=== PATIENT | male | born 1975 | race Caucasian/White ===

== ENCOUNTER 2017-06-25 21:49 | Emergency (ER) | payer SELFPAY ==
[2017-06-25 21:49] VITALS: BMI 30.9
[2017-06-25 22:08] VITALS: BP 151/80; PULSE 64; RESP 16; TEMP 98; O2SAT 100
--- NOTE | 2017-06-25 22:34 | ED PDOC ---
HPI: CCC, URI, Sore Throat Time Seen by Provider: 06/25/17 22:09 Chief Complaint (Nursing): ENT Problem Chief Complaint (Provider): Nose bleed History Per: Patient Additional Complaint(s): 41 yo male, no PMH, presents to ED for evaluation of nosebleed from left nare since Friday. Patient has had bleed evaluated and treated at multiple emergency rooms. Pt was seen at [facility] [place] [place] 2x, [facility] 2x where he was cauterized and then [place] today where he had a rhino-rocket placed. Packing is coming out. Pt reports bleeding always seems to stop, and then start again. pt seeing ENT on Friday. Past Medical History Reviewed: Nursing Documentation, Vital Signs Vital Signs: Last Vital Signs Temp 98.0 F 06/25/17 22:05 Pulse 64 06/25/17 22:05 Resp 16 06/25/17 22:05 BP 151/80 H 06/25/17 22:05 Pulse Ox 100 06/25/17 22:37 - Medical History PMH: No Chronic Diseases Denies: Chronic Kidney Disease - Surgical History Surgical History: No Surg Hx - Family History Family History: States: Unknown Family Hx - Living Arrangements Living Arrangements: With Family - Social History Current smoker - smoking cessation education provided: No Alcohol: Social Drugs: Denies - Immunization History Hx Tetanus Toxoid Vaccination: No Hx Influenza Vaccination: No Hx Pneumococcal Vaccination: No - Home Medications Home Medications: Ambulatory Orders Medication Instructions Recorded Amoxicillin 875 mg PO BID #14 tab 06/24/17 Amoxicillin/Clavulanate [Augmentin 1 tab PO BID #10 tab 06/25/17 875 MG-125 MG] Sodium Chloride Nasal [place] [[place] 1 ml NS BID #1 bottle 06/25/17 Nasal [place]] - Allergies Allergies/Adverse Reactions: Allergies Allergy/AdvReac Type Severity Reaction Status Date / Time No Known Allergies Allergy Verified 06/24/17 19:57 Review of Systems ROS Statement: Except As Marked, All Systems Reviewed And Found Negative ENT: Positive for: Other (nasal bleeding) Physical Exam - Reviewed Nursing Documentation Reviewed: Yes Vital Signs Reviewed: Yes - Physical Exam Appears: Positive for: Well, Non-toxic, No Acute Distress Head Exam: Positive for: ATRAUMATIC, NORMAL INSPECTION, NORMOCEPHALIC Skin: Positive for: Normal Color, Warm, DRY Eye Exam: Positive for: EOMI, Normal appearance, PERRL ENT: Positive for: Other ((+) rhinorocket in place to left nare) Neck: Positive for: Normal, Painless ROM Cardiovascular/Chest: Positive for: Regular Rate, Rhythm Respiratory: Positive for: CNT, Normal Breath Sounds Gastrointestinal/Abdominal: Positive for: Normal Exam, Bowel Sounds, Soft Back: Positive for: Normal Inspection Extremity: Positive for: Normal ROM Neurologic/Psych: Positive for: Alert, Oriented - ECG O2 Sat by Pulse Oximetry: 100 Medical Decision Making Medical Decision Making: Rhinorocket removed at Pts request No bleeding noted. Silver nitrate applied by blog writer Pt educated on proper technique to stop bleeds. [place] Nasal spray prescribed. pt advised to sleep somewhat upright Importance of follow up with ENT was stressed Pt advised to return to ED if at anytime condition worsens. Disposition - Clinical Impression Clinical Impression: Epistaxis - Patient ED Disposition Is Patient to be Admitted: No - Disposition Referrals: Simone Pimentel MD [Staff Provider] - Disposition: Routine/Home Disposition Time: 23:35 Condition: STABLE Prescriptions: Sodium Chloride Nasal [place] [[place] Nasal [place]] 1 ml NS BID #1 bottle Instructions: Nosebleed (ED) Forms: [facility] (Mongolian) - POA Present On Arrival: None
[2017-06-25] MEDS ORDERED: Silver Nitrate Topical - Stick TOP ONE (22:57)
[2017-06-25] MEDS ORDERED: Silver Nitrate Topical - Stick ONE (23:17)
== END 2017-06-25 23:57 | disposition home or self-care (01) ==
LOC: H.ER 21:49
DX: R04.0 Epistaxis (principal)

== ENCOUNTER 2018-10-10 05:37 | Emergency (ER) | payer OTHER ==
[2018-10-10 05:37] VITALS: BMI 30.9
--- NOTE | 2018-10-10 06:12 | ED PDOC ---
HPI: Chest Pain <Nataliya Orta - Last Filed: 10/10/18 08:22> Chief Complaint (Provider): Chest Pain History Per: Patient History/Exam Limitations: no limitations Onset/Duration Of Symptoms: Days (x6) Current Symptoms Are (Timing): Still Present Additional Complaint(s): 43 year old [place] male with left-sided chest pain with occasional shortness of breath for 6 days. He denies any nausea, vomiting, or diaphoresis. PCP: none provided <Tony Mancuso - Last Filed: 10/10/18 20:03> Time Seen by Provider: 10/10/18 05:41 Chief Complaint (Nursing): Chest Pain Past Medical History Vital Signs: Last Vital Signs Temp 97.8 F 10/10/18 05:52 Pulse 58 L 10/10/18 06:25 Resp 16 10/10/18 05:52 BP 129/75 10/10/18 05:52 Pulse Ox 99 10/10/18 06:19 <Nataliya Orta A - Last Filed: 10/10/18 08:22> Reviewed: Historical Data, Nursing Documentation, Vital Signs Vital Signs: Last Vital Signs Temp 97.8 F 10/10/18 05:52 Pulse 56 L 10/10/18 05:52 Resp 16 10/10/18 05:52 BP 129/75 10/10/18 05:52 Pulse Ox 99 10/10/18 05:52 - Medical History PMH: No Chronic Diseases Denies: Chronic Kidney Disease - Surgical History Other surgeries: left abdominal cyst removed - Family History Family History: States: Unknown Family Hx - Immunization History Hx Tetanus Toxoid Vaccination: No Hx Influenza Vaccination: No Hx Pneumococcal Vaccination: No <Tony Mancuso - Last Filed: 10/10/18 20:03> - Home Medications Home Medications: Ambulatory Orders Medication Instructions Recorded Cyclobenzaprine [Cyclobenzaprine 10 mg PO TID PRN #21 tab 02/13/18 HCl] Lidocaine 5% [Lidoderm] 1 patch TOP DAILY PRN #14 patch 02/13/18 RX: Naproxen 500 mg PO BID PRN #24 tablet 02/13/18 - Allergies Allergies/Adverse Reactions: Allergies Allergy/AdvReac Type Severity Reaction Status Date / Time No Known Allergies Allergy Verified 02/13/18 10:50 Review of Systems ROS Statement: Except As Marked, All Systems Reviewed And Found Negative Constitutional: Negative for: Sweats Cardiovascular: Positive for: Chest Pain (left-sided) Respiratory: Positive for: Shortness of Breath Gastrointestinal: Negative for: Nausea, Vomiting <BartolomeTony Pedro - Last Filed: 10/10/18 20:03> Physical Exam - Reviewed Nursing Documentation Reviewed: Yes Vital Signs Reviewed: Yes - Physical Exam Appears: Positive for: Well, Non-toxic, No Acute Distress Head Exam: Positive for: ATRAUMATIC, NORMAL INSPECTION, NORMOCEPHALIC Skin: Positive for: Normal Color Eye Exam: Positive for: Normal appearance, EOMI, PERRL ENT: Positive for: Normal ENT Inspection Neck: Positive for: Normal Cardiovascular/Chest: Positive for: Regular Rate, Rhythm, Chest Non Tender. Negative for: Bradycardia, Tachycardia Respiratory: Positive for: Normal Breath Sounds. Negative for: Respiratory Distress Gastrointestinal/Abdominal: Positive for: Normal Exam, Soft. Negative for: Tenderness Extremity: Positive for: Normal ROM (upper/lower). Negative for: Pedal Edema, Calf Tenderness Neurologic/Psych: Positive for: Alert, Oriented. Negative for: Motor/Sensory Deficits <Tony Mancuso Vasquez - Last Filed: 10/10/18 20:03> - Laboratory Results Result Diagrams: 10/10/18 06:25 10/10/18 06:25 <Nataliya Orta - Last Filed: 10/10/18 08:22> - Laboratory Results Result Diagrams: 10/10/18 06:25 10/10/18 06:25 - ECG O2 Sat by Pulse Oximetry: 99 (RA) Pulse Ox Interpretation: Normal <Tony Mancuso Vasquez - Last Filed: 10/10/18 20:03> Medical Decision Making Medical Decision Making: Initial Impression: 43 year old [place]ae-[place] male with chest pain Initial Plan: * EKG * Labs * Aspirin chewable 324mg PO Time: 0700 --Patient is signed out to Dr. Orta pending lab results and re-evaluation. Scribe Attestation: Documented by Inessa Rehman, acting as a scribe for Tony Mancuso MD. Provider Scribe Attestation: All medical record entries made by the Scribe were at my direction and personally dictated by me. I have reviewed the chart and agree that the record accurately reflects my personal performance of the history, physical exam, medical decision making, and the department course for this patient. I have also personally directed, reviewed, and agree with the discharge instructions and disposition. <Tony Mancuso - Last Filed: 10/10/18 20:03> Disposition <Nataliya Orta - Last Filed: 10/10/18 08:22> - Disposition Disposition: Transfer of Care Disposition Time: 07:00 <Tony Mancuso - Last Filed: 10/10/18 20:03> - Clinical Impression Clinical Impression: Chest pain, Interstitial lung disease - Disposition Condition: GOOD Additional Instructions: BRYCE GILLILAND, thank you for letting us take care of you today. Your provider was Nataliya Orta MD and you were treated for CHEST PAIN. The emergency medical care you received today was directed at your acute symptoms. If you were prescribed any medication, please fill it and take as directed. It may take several days for your symptoms to resolve. Return to the Emergency Department if your symptoms worsen, do not improve, or if you have any other problems. Please contact your doctor or call one of the physicians/clinics you have been referred to that are listed on the Patient Visit Information form that is included in your discharge packet. Bring any paperwork you were given at discharge with you along with any medications you are taking to your follow up visit. Our treatment cannot replace ongoing medical care by a primary care provider outside of the emergency department. Thank you for allowing the [facility] team to be part of your care today. If you had an X-Ray or CT scan: A Radiologist will review the ED reading if any change in treatment is needed we will contact you. If you had a blood, urine, or wound culture: It will take several days for the results, if any change in treatment is needed we will contact you. If you had an STI test: It will take 48 hours for the results. Please call after 1 week if you have not heard back. Instructions: Chest Pain, Interstitial Lung Disease Forms: [facility] (Lao)
[2018-10-10 06:55] LABS: BASO % 0.5 % (0.0-2.0); EOS # 0.1 K/uL (0.0-0.7); EOS % 2.4 % (0.0-4.0); HEMOGLOBIN 14.3 g/dL (12.0-18.0); LYMPH # 1.8 K/uL (1.0-4.3); MEAN CELL VOLUME 86.8 fl (80.0-94.0); MEAN CORPUSCULAR HEMOGLOBIN 28.8 pg (27.0-31.0); MEAN CORPUSCULAR HGB CONC 33.2 g/dL (33.0-37.0); MEAN PLATELET VOLUME 9.4 fl (7.2-11.7); MONO # 0.4 K/uL (0.0-0.8); MONO % 9.4 % (0.0-10.0); NEUT # 2.2 K/uL (1.8-7.0); NEUT % 48.7 % (50.0-75.0); NRBC % 0.1 % (0.0-0.0); RBC 4.96 Mil/uL (4.40-5.90); WHITE BLOOD COUNT 4.6 K/uL (4.8-10.8)
[2018-10-10 07:00] LABS: ALB/GLOB RATIO 1.5 (1.0-2.1); ALBUMIN 4.1 g/dL (3.5-5.0); ALT/SGPT 46 U/L (21-72); AST/SGOT 22 U/L (17-59); BLOOD UREA NITROGEN 19 mg/dl (9-20); CALCIUM 9.1 mg/dL (8.4-10.2); GFR NON-AFRICAN AMERICAN > 60
[2018-10-10] MEDS ORDERED: Morphine 4 MG/ML VIAL IVP ONE (08:24)
[2018-10-10 08:26] VITALS: RESP 18; TEMP 97.9
[2018-10-10] MEDS ORDERED: Morphine 4 MG/ML VIAL ONE (08:32)
[2018-10-10] MEDS ORDERED: Iodixanol 320 MG/ML 100 ML BOTTLE IV ONE (09:02)
--- NOTE | 2018-10-10 09:39 | CT ---
Date of service: 10/10/2018 PROCEDURE: CT Chest with contrast (Pulmonary Angiogram) HISTORY: chest pain COMPARISON: None available. TECHNIQUE: Axial computed tomography images were obtained of the chest in the pulmonary arterial phase of enhancement. Coronal and sagittal reformatted images were created and reviewed. Intravenous contrast dose: Visipaque 320, 99 cc Radiation dose: Total exam DLP = 393.0 mGy-cm. This CT exam was performed using one or more of the following dose reduction techniques: Automated exposure control, adjustment of the mA and/or kV according to patient size, and/or use of iterative reconstruction technique. FINDINGS: PULMONARY ARTERIES: Unremarkable. No pulmonary embolism. AORTA: No acute findings. No thoracic aortic aneurysm. No aortic atherosclerotic calcification or mural plaque present. LUNGS: No alveolitis identified bilaterally or discrete pulmonary mass including central airways. Ground-glass opacity scattered throughout both lung kumar bilaterally could reflect an element of reversible interstitial pulmonary disease. Further clinical correlation is recommended. PLEURAL SPACES: Unremarkable. No effusion or pneumothorax. HEART: Unremarkable. No cardiomegaly. No significant pericardial effusion. LYMPH NODES: No lymphadenopathy. BONES, CHEST WALL: Unremarkable. No fracture or destructive lesion OTHER FINDINGS: Elevated right hemidiaphragm, etiology indeterminate. IMPRESSION: 1. No CT evidence of pulmonary embolus, alveolitis, pleural or pericardial effusion. No significant lymphadenopathy. 2. Limited nonspecific ground-glass opacity scattered bilaterally as discussed above. Consider potential limited interstitial pulmonary disease. 3. Mildly elevated right hemidiaphragm.
--- NOTE | 2018-10-10 09:40 | ED PDOC ---
- Laboratory Results Result Diagrams: 10/10/18 06:25 10/10/18 06:25 - ECG O2 Sat by Pulse Oximetry: 99 - Radiology X-Ray: Interpreted by Me, Viewed By Me X-Ray Interpretation: No Acute Disease Medical Decision Making Medical Decision Makin:00 Patient endorsed to this provider from Dr. Mancuso. Pending labs and reevaluation. 09:35 CT chest FINDINGS: PULMONARY ARTERIES: Unremarkable. No pulmonary embolism. AORTA: No acute findings. No thoracic aortic aneurysm. No aortic atherosclerotic calcification or mural plaque present. LUNGS: No alveolitis identified bilaterally or discrete pulmonary mass including central airways. Ground-glass opacity scattered throughout both lung kumar bilaterally could reflect an element of reversible interstitial pulmonary dise ase. Further clinical correlation is recommended. PLEURAL SPACES: Unremarkable. No effusion or pneumothorax. HEART: Unremarkable. No cardiomegaly. No significant pericardial effusion. LYMPH NODES: No lymphadenopathy. BONES, CHEST WALL: Unremarkable. No fracture or destructive lesion OTHER FINDINGS: Elevated right hemidiaphragm, etiology indeterminate. IMPRESSION: 1. No CT evidence of pulmonary embolus, alveolitis, pleural or pericardial effusion. No significant lymphadenopathy. 2. Limited nonspecific ground-glass opacity scattered bilaterally as discussed above. Consider potential limited interstitial pulmonary disease. 3. Mildly elevated right hemidiaphragm. ----- Scribe Attestation: Documented by Frankie Al acting as a scribe for Nataliya Orta MD. Provider Scribe Attestation: All medical record entries made by the Scribe were at my direction and personally dictated by me. I have reviewed the chart and agree that the record accurately reflects my personal performance of the history, physical exam, medical decision making, and the department course for this patient. I have also personally directed, reviewed, and agree with the discharge instructions and disposition. Disposition Counseled Patient/Family Regarding: Studies Performed, Diagnosis, Need For Followup - Clinical Impression Clinical Impression: Chest pain, Interstitial lung disease - POA Present On Arrival: None - Disposition Disposition: Routine/Home Disposition Time: 10:55 Condition: GOOD Additional Instructions: BRYCE GILLILAND, thank you for letting us take care of you today. Your provider was Nataliya Orta MD and you were treated for CHEST PAIN. The emergency medical care you received today was directed at your acute symptoms. If you were prescribed any medication, please fill it and take as directed. It may take several days for your symptoms to resolve. Return to the Emergency Department if your symptoms worsen, do not improve, or if you have any other problems. Please contact your doctor or call one of the physicians/clinics you have been referred to that are listed on the Patient Visit Information form that is included in your discharge packet. Bring any paperwork you were given at discharge with you along with any medications you are taking to your follow up visit. Our treatment cannot replace ongoing medical care by a primary care provider outside of the emergency department. Thank you for allowing the [facility] team to be part of your care today. If you had an X-Ray or CT scan: A Radiologist will review the ED reading if any change in treatment is needed we will contact you. If you had a blood, urine, or wound culture: It will take several days for the results, if any change in treatment is needed we will contact you. If you had an STI test: It will take 48 hours for the results. Please call after 1 week if you have not heard back. Instructions: Chest Pain, Interstitial Lung Disease Forms: [facility] (Austrian)
[2018-10-10 11:24] VITALS: BP 130/79; PULSE 75
--- NOTE | 2018-10-10 13:42 | CARD ---
APPROVED REPORT Date of service: 10/10/2018 EKG Measurement Heart [id number] <Conclusion> Sinus bradycardia Otherwise normal ECG
--- NOTE | 2018-10-10 16:38 | RAD ---
Date of service: 10/10/2018 HISTORY: chest pain COMPARISON: No prior. FINDINGS: LUNGS: No active pulmonary disease. PLEURA: No significant pleural effusion identified, no pneumothorax apparent. CARDIOVASCULAR: No aortic atherosclerotic calcification present. Normal cardiac size. No pulmonary vascular congestion. OSSEOUS STRUCTURES: No significant abnormalities. VISUALIZED UPPER ABDOMEN: Normal. OTHER FINDINGS: None. IMPRESSION: No acute cardiopulmonary disease appreciated.
[2018-10-10 20:04] VITALS: O2SAT 99
== END 2018-10-10 11:34 | disposition home or self-care (01) ==
LOC: H.ER 05:37
DX: R07.9 Chest pain, unspecified (principal); J84.9 Interstitial pulmonary disease, unspecified
CPT/HCPCS: 71045; 71275; 80053; 84484; 85025; 93005; 96374; 99285; J2270; Q9967

== ENCOUNTER 2018-10-31 20:28 | Emergency (ER) | payer OTHER ==
[2018-10-31 20:29] VITALS: BMI 30.9
[2018-10-31 20:40] VITALS: O2SAT 99
--- NOTE | 2018-10-31 21:29 | ED PDOC ---
HPI: Chest Pain Time Seen by Provider: 10/31/18 20:57 Chief Complaint (Nursing): Chest Pain Chief Complaint (Provider): Chest Pain History Per: Patient History/Exam Limitations: no limitations Onset/Duration Of Symptoms: Mins (prior to arrival) Current Symptoms Are (Timing): Still Present Quality: "Pain" Associated Symptoms: Diaphoresis Additional Complaint(s): 43 year old male with no medical history presents to the ED with sudden onset chest pain radiating to left arm associated with diaphoresis. Patient reports he was driving home at the onset of symptoms so he came to the ED instead. He was seen 2 weeks ago in this ED for similar, less severe symptoms. Workup at the time was negative. He followed up with his PMD and has an appointment with his marketing program manager in 2 days. Shortly after pain began he also had cramping in upper abdomen and throbbing in lower abdomen. Denies fever, shortness of breath, weakness and numbness. PMD: Dr. Yojana March Past Medical History Reviewed: Historical Data, Nursing Documentation, Vital Signs Vital Signs: Last Vital Signs Temp 98.1 F 10/31/18 20:38 Pulse 63 10/31/18 20:38 Resp 18 10/31/18 20:38 BP 136/91 H 10/31/18 20:38 Pulse Ox 99 10/31/18 20:38 - Medical History PMH: No Chronic Diseases Denies: Chronic Kidney Disease - Surgical History Surgical History: No Surg Hx - Family History Family History: States: Unknown Family Hx - Immunization History Hx Tetanus Toxoid Vaccination: No Hx Influenza Vaccination: No Hx Pneumococcal Vaccination: No - Home Medications Home Medications: Ambulatory Orders Medication Instructions Recorded Cyclobenzaprine [Cyclobenzaprine 10 mg PO TID PRN #21 tab 02/13/18 HCl] Lidocaine 5% [Lidoderm] 1 patch TOP DAILY PRN #14 patch 02/13/18 Naproxen 500 mg PO BID PRN #24 tablet 02/13/18 - Allergies Allergies/Adverse Reactions: Allergies Allergy/AdvReac Type Severity Reaction Status Date / Time No Known Allergies Allergy Verified 02/13/18 10:50 Review of Systems ROS Statement: Except As Marked, All Systems Reviewed And Found Negative Constitutional: Positive for: Sweats Cardiovascular: Positive for: Chest Pain (radiating to left arm) Respiratory: Negative for: Shortness of Breath Gastrointestinal: Positive for: Abdominal Pain (cramping and throbbing) Neurological: Negative for: Weakness, Numbness Physical Exam - Reviewed Nursing Documentation Reviewed: Yes Vital Signs Reviewed: Yes - Physical Exam Appears: Positive for: No Acute Distress (vitals stable on the monitor) Head Exam: Positive for: ATRAUMATIC, NORMAL INSPECTION, NORMOCEPHALIC Skin: Positive for: Normal Color, Warm, Dry Eye Exam: Positive for: EOMI, Normal appearance, PERRL Neck: Positive for: Normal, Painless ROM, Supple Cardiovascular/Chest: Positive for: Regular Rate, Rhythm. Negative for: Murmur Respiratory: Positive for: Normal Breath Sounds. Negative for: Respiratory Distress Gastrointestinal/Abdominal: Positive for: Normal Exam, Soft. Negative for: Tenderness Extremity: Positive for: Normal ROM. Negative for: Calf Tenderness (and cyanosis), Deformity Neurologic/Psych: Positive for: Alert, Oriented. Negative for: Motor/Sensory Deficits - Laboratory Results Result Diagrams: 10/31/18 21:20 10/31/18 21:20 - ECG O2 Sat by Pulse Oximetry: 99 (RA) Pulse Ox Interpretation: Normal Medical Decision Making Medical Decision Makin:57 MDM: Workup for chest pain Workup 2 weeks ago showed no abnormalities Cardiac enzymes, chest x-ray and aspirin Pepcid for possible gastritis CT chest at last visit was negative; no indication to repeat Reassess 2330 Pt with normal vitals, labs WNL, undetectable troponin. Pt with Heart score of 1. Pt to be discharged home and will follow up with marketing program manager on Friday as previously scheduled. Return parameters discussed. Scribe Attestation: Documented by Elenita Sharma acting as a scribe for Faina Cevallos MD Provider Scribe Attestation: All medical record entries made by the Scribe were at my direction and pe rsonally dictated by me. I have reviewed the chart and agree that the record accurately reflects my personal performance of the history, physical exam, medical decision making, and the department course for this patient. I have also personally directed, reviewed, and agree with the discharge instructions and disposition. Disposition - Clinical Impression Clinical Impression: Atypical chest pain - Disposition Disposition: Routine/Home Disposition Time: 23:34 Condition: STABLE Forms: [employer] (Austrian)
[2018-10-31 21:32] LABS: VENOUS BLOOD GAS BASE EXCESS -1.8 mmol/L (0.0-2.0); VENOUS BLOOD GAS PCO2 42 mmHg (40-60); VENOUS BLOOD GAS PO2 37 mm/Hg (30-55); VENOUS BLOOD PH 7.36 (7.32-7.43)
[2018-10-31 21:33] LABS: PROTHROMBIN TIME 10.8 Seconds (9.8-13.1)
[2018-10-31 21:35] LABS: BASO % 0.7 % (0.0-2.0); EOS # 0.1 K/uL (0.0-0.7); EOS % 1.6 % (0.0-4.0); HEMOGLOBIN 14.4 g/dL (12.0-18.0); LYMPH # 2.7 K/uL (1.0-4.3); LYMPH % 37.6 % (20.0-40.0); MEAN CELL VOLUME 86.8 fl (80.0-94.0); MEAN CORPUSCULAR HGB CONC 33.4 g/dL (33.0-37.0); MEAN PLATELET VOLUME 9.5 fl (7.2-11.7); MONO # 0.5 K/uL (0.0-0.8); MONO % 7.2 % (0.0-10.0); NEUT # 3.8 K/uL (1.8-7.0); NEUT % 52.9 % (50.0-75.0); NRBC % 0.1 % (0.0-0.0); RBC 4.96 Mil/uL (4.40-5.90); RED CELL DISTRIBUTION WIDTH 13.8 % (11.5-14.5); WHITE BLOOD COUNT 7.1 K/uL (4.8-10.8)
[2018-10-31 21:48] LABS: B-TYPE NATRIURETIC PEPTIDE 23.6 pg/ml (0-450); BLOOD UREA NITROGEN 23 mg/dl (9-20); CALCIUM 9.1 mg/dL (8.4-10.2); GFR NON-AFRICAN AMERICAN > 60
[2018-11-01 00:07] VITALS: BP 128/86; PULSE 61; RESP 16; TEMP 98.3
--- NOTE | 2018-11-01 09:47 | RAD ---
Date of service: 10/31/2018 HISTORY: possible admission COMPARISON: No prior. FINDINGS: LUNGS: No active pulmonary disease. PLEURA: No significant pleural effusion identified, no pneumothorax apparent. CARDIOVASCULAR: No aortic atherosclerotic calcification present. Normal cardiac size. No pulmonary vascular congestion. OSSEOUS STRUCTURES: No significant abnormalities. VISUALIZED UPPER ABDOMEN: Normal. OTHER FINDINGS: None. IMPRESSION: No active disease.
== END 2018-11-01 00:07 | disposition home or self-care (01) ==
LOC: H.ER 20:28
DX: R07.89 Other chest pain (principal)